=== PATIENT | female | born 1995 | race Caucasian/White ===

== ENCOUNTER 2020-01-23 10:32 | Outpatient (REF) | payer BC, SELFPAY ==
[2020-01-27 14:53] LABS: CT PCR NOT DETECTED (Not Detect.); NG PCR NOT DETECTED (Not Detect.)
[2020-01-27 21:03] LABS: HPV mRNA E6/E7 rflx Not Detected (Not Detected)
== END 2020-01-23 10:33 | disposition home or self-care (01) ==
LOC: HO.LAB 10:32
PROVIDERS: Visit Provider Advanced Practice Midwife
DX: Z01.419 Encounter for gynecological examination (general) (routine) without abnormal findings (principal); Z30.9 Encounter for contraceptive management, unspecified
CPT/HCPCS: 87491; 87591; 87624; 87625; 88142

== ENCOUNTER 2020-08-18 10:28 | Outpatient (REF) | payer BC, SELFPAY ==
[2020-08-20 21:22] LABS: TS Negative Control Passed; TS Panel A 2; TS Panel B 0; TS Positive Control Passed; TSpotTB Negative (SeeBelow)
== END 2020-08-18 10:29 | disposition home or self-care (01) ==
LOC: HO.WFDLDS 10:28
PROVIDERS: Visit Provider Family Medicine
DX: R76.11 Nonspecific reaction to tuberculin skin test without active tuberculosis (principal)
CPT/HCPCS: 36415; 86481

== ENCOUNTER → 2020-09-20 09:14 | Outpatient (BNVA) | payer BC, SELFPAY | PROVIDERS: PCP Hospitalist; Visit Provider Advanced Practice Midwife ==